=== PATIENT | female | born 1995 | race Caucasian/White ===

== ENCOUNTER 2017-08-14 14:50 | Emergency (ER) | payer OTHER ==
[2017-08-14 15:03] VITALS: TEMP 97.9; O2SAT 98
--- NOTE | 2017-08-14 15:19 | CPEKG ---
Heart Rate: 61 RR Interval: 984 P-R Interval: 140 QRSD Interval: 78 QT Interval: 416 QTC Interval: 419 P Holliday: 68 QRS Holliday: 66 T Wave Holliday: 10 EKG Severity - BORDERLINE ECG - EKG Impression: SINUS ARRHYTHMIA, RATE 53-75 EKG Impression: PROBABLE LEFT ATRIAL ABNORMALITY Electronically Signed By: Kirsten Guerra 14-Aug-2017 20:30:52
--- NOTE | 2017-08-14 16:07 | EDPHY ---
HPI/HX/ROS/PE/MDM Narrative: CHIEF COMPLAINT: Chest pain HISTORY OF PRESENT ILLNESS: This patient is a 21 year old female complaining of chest pain onset this morning and an episode of shortness of breath last night. Yesterday, she became very short of breath riding her bike. This resolved shortly after discontinuing her exercise. Today, she has had chest pains since 9am, onset 30 minutes after waking. Slight increased pain with deep inspiration. She feels increased pain when she moves her neck or chest. She has never had similar symptoms in the past. No fever, nausea, vomiting, or recent illness, or contact with ill persons. No recent trauma to her chest. She denies history of indigestion. She did switch to a Nexplanon implant for control within the last month. She denies family history of blood clots. No fever, chills, shortness of breath, palpitations, diarrhea, urinary complaints, headache, lightheadedness. No fainting. No diaphoresis. REVIEW OF SYSTEMS: Aside from elements discussed in the HPI, a comprehensive 10-point review of systems was reviewed and is negative. PAST MEDICAL HISTORY: Denies. SOCIAL HISTORY: Nonsmoker. Occasional alcohol use. Student at [employer]. No illicit drug use. VITAL SIGNS: Reviewed by me GENERAL: Well-developed, well-nourished, resting comfortably in no respiratory distress. HEENT: Atraumatic. Eyes: No icterus, no injection. Mouth: moist mucous membranes. No erythema or lesions. Neck: supple with no adenopathy. LUNGS: Diminished breath sounds throughout. Mild chest wall tenderness, no reproducible pain or pinpoint tenderness. CARDIAC: Regular rate and rhythm, no rubs, murmurs or gallops. ABDOMEN: Soft, nontender, nondistended, bowel sounds normal. BACK: No CVA tenderness. EXTREMITIES: No trauma. No edema. Range of motion is normal throughout. NEURO: Alert and oriented, grossly nonfocal. SKIN: Warm and dry, no rash. PSYCHIATRIC: Normal mentation, no agitation. Portions of this note were transcribed by a medical billing specialist. I personally performed a history, physical exam, medical decision making, and confirmed accuracy of information the transcribed note. ED Course: 21 year old female presents following a brief episode of shortness of breath last night and chest pain onset this morning. Exam reveals diminished breath sounds throughout. Mild chest wall tenderness, no reproducible pain or pinpoint tenderness. Plan to administer albuterol nebulizer. IV established. Plan for labs including CBC, BMP, D-dimer, BHCG. Plan for chest x-ray, EKG. Chest x-ray shows evidence of possible airways disease. D-dimer is negative. 16:45 Reassessed patient. She is feeling improved following albuterol treatment. Plan to administer an additional nebulizer treatment. The patient's mother is en route. Plan to discharge home in good condition with a prescription for albuterol inhaler. Follow up and return precautions discussed. The patient is comfortable with this plan. Patient is on control pills but does not smoker. She has not been on any recently prolonged flights. Not tachycardic, tachypneic, or hypoxic. MDM: Differential diagnosis for the patient's shortness of breath was considered including but not limited to pulmonary infectious processes, pulmonary emboli, pulmonary edema, congestive heart failure, and cardiac causes. - Data Points Imaging: I viewed and interpreted images myself Laboratory Results: Laboratory Results 08/14/17 15:16 08/14/17 15:16 Medications Given: Discontinued Medications Albuterol (Proventil Neb) 3 ml IH EDNOW ONE Stop: 08/14/17 16:10 Last Admin: 08/14/17 16:33 Dose: 3 ml Albuterol (Proventil Neb) 3 ml IH EDNOW ONE Stop: 08/14/17 16:54 Last Admin: 08/14/17 17:17 Dose: 3 ml Sodium Chloride (Ns) 500 mls @ 1,000 mls/hr IV EDNOW ONE PRN Reason: Protocol Stop: 08/14/17 16:37 Last Admin: 08/14/17 16:35 Dose: 500 mls General Time Seen by Provider: 08/14/17 15:55 Initial Vital Signs: Initial Vital Signs Temperature (C) 36.6 C 08/14/17 15:00 Heart Rate 66 08/14/17 15:00 Respiratory Rate 16 08/14/17 15:00 Blood Pressure 143/72 H 08/14/17 15:00 O2 Sat (%) 98 08/14/17 15:00 O2 Delivery Mode Room Air Allergies/Adverse Reactions: No Known Allergies Allergy (Unverified 08/14/17 15:00) Home Medications: Medication Instructions Recorded Albuterol Hfa Anes Only [Proair 2 puffs IH QID #1 mdi 08/14/17 Hfa Icu (*)] Implant For Bc 08/14/17 Departure - Departure Disposition: Home, Routine, Self-Care Clinical Impression: Shortness of breath, Bronchospasm Condition: Good Instructions: Albuterol (By breathing), Dyspnea (ED), Bronchospasm (ED) Additional Instructions: 1. Use your albuterol inhaler as prescribed as needed for shortness of breath, two puffs up to four times per day. 2. Follow up with your primary care physician for continued evaluation of symptoms. 3. Return to the emergency department for increased difficulty breathing, increased chest pain, fever, severe headache, or other worsening of condition. Referrals: MOISÉS BURNETT [Other] - As per Instructions [facility],. [Clinic] - As per Instructions Prescriptions: Albuterol Hfa Anes Only [Proair Hfa Icu (*)] 2 puffs IH QID #1 mdi Report Scribed for: Kirsten Guerra Report Scribed by: Maryam Dang Date of Report: 08/14/17 Time of Report: 16:46
[2017-08-14] MEDS ORDERED: NS 500 ML IV ONE ×2 (16:08)
[2017-08-14] MEDS ORDERED: ALBUTEROL 3 ML DEYVIAL IH ONE ×4 (16:09→16:53)
[2017-08-14 16:18] LABS: PLATELET COUNT 258 10^3/uL (150-400)
[2017-08-14 17:28] VITALS: BP 127/67; PULSE 83; RESP 16
== END 2017-08-14 17:38 | disposition home or self-care (01) ==
DX: J98.01 Acute bronchospasm (principal); E86.9 Volume depletion, unspecified